=== PATIENT | female | born 1990 | race African-American/Black ===

== ENCOUNTER 2016-09-10 07:45 | Inpatient (IN) | payer OTHER ==
[2016-09-10] MEDS: D5W-LR W/ 20 UNITS OXYTOCIN 1,000 ML IV SCH ×2 (08:15→09:51)
--- NOTE | 2016-09-10 08:29 | HP ---
Past Medical History - Primary Care Physician PCP:: [facility] - Admission Chief Complaint: Painful contractions History of Present Illness: 25 @ 38wk3d with previous c/s requesting TOLAC. Fully dilated on presentation. SROM, clear. +FM, no VB. GBS positive. O+, ab neg. +Utox for Marijuana 04/04/16. HBsAg NR, Rubella Immine, RPR NR, hx chlamydia + 03/29/16, s/ p treatment, PEDRO neg 05/24/16. History Source: Patient Limitations to Obtaining History: No Limitations - Past Medical History CABLE PLACER: No: Alzheimer's, CVA, Dementia, Migraine, Multiple Sclerosis, Peripheral Neuropathy, Parkinson's, Seizure, Syncope, TIA, Vertigo, Other Cardiovascular: No: AFIB, Aneurysm, Aortic Insufficiency, Aortic Stenosis, CAD, CHF, Deep Vein Thrombosis, HTN, Hyperlipdemia, TN, Mitral Insufficiency, Mitral Stenosis, Murmur, Pulmonary Hypertension, Other Pulmonary: No: Asthma, Bronchitis, Cancer, COPD, O2 Dependent, Pneumonia, Previously Intubated, Pulmonary Embolus, Pulmonary Fibrosis, Sleep Apnea, Other Gastrointestinal: No: Ascites, Cancer, Constipation, Crohn's Disease, Diverticulitis, Diverticulosis, Esophageal Varices, Gastritis, GERD, GI Bleed, Hemorrhoids, Hiatal Hernia, Inflamatory Bowel Disease, Irritable Bowel Disease, Pancreatitis, Peptic Ulcer Disease, Ulcerative Colitis, Other Renal/: No: Renal Failure, Renal Inusuff, BPH, Cancer, Hematuria, Hemodialysis , Neurogenic Bladder, Renal Calculi, UTI, Other Reproductive: No: Ectopic , Endometriosis, Fibroids, PID, Polycystic Ovary Syndrome, Postmenopausal, Other ...: 4 ...Para: 1 ...Term: 1 ...: 0 ...Spon : 0 ...Induced : 2 ...Multiple Gestation: 0 ...LMP: 09/18/15 ...EDC by [facility]: 09/21/16 Heme/Onc: No: Anemia, B12 Deficiency, Bleeding Disorder, Cancer, Current Chemotherapy, Current Radiation Therapy, Hemochromatosis, Hypercoaguable State, Myeloproliferative Synd, Sickle Cell Disease, Sickle Cell Trait, Thrombocytopenia, Other Infectious Disease: No: AIDS, C-Diff, Herpes Zoster, HIV, MRSA, STD's, Tuberculosis, VREF, Other Psych: No: Addictions, Anxiety, Bipolar, Depression, Panic, Psychosis, Schizophrenia, Other Musculoskeletal: No: Bursitis, Chronic low back pain, Hemiparesis, Hemiplegia, Osteoarthritis, Paraplegia, Other Rheumatology: No: Fibromyalgia, Gout, Lupus, Rheumatoid Arthritis, Sarcoidosis, Vasculitis, Other ENT: No: Allergic Rhinitis, Sinusitis, Other Endocrine: No: Greenbrier's Disease, [place]'s Disease, Diabetes Insipidus, Diabetes Mellitus, Hyperparathyroidism, Hyperthyroidism, Hypothyroidism, Osteopenia, SIADH, Other Dermatology: No: Basal Cell, Cellulitis, Eczema, Melanoma, Psoriasis, Squamous Cell, Other - Past Surgical History Past Surgical History: Yes: Hx Myomectomy: No Hx Transabdominal Cerclage: No - Smoking History Have you smoked in the past 12 months: No - Alcohol/Substance Use Hx Alcohol Use: No History of Substance Use: reports: None Home Medications - Allergies Allergies/Adverse Reactions: Allergies Allergy/AdvReac Type Severity Reaction Status Date / Time shrimp Allergy Severe Verified 08/26/16 11:50 No Known Drug Allergies Allergy Verified 08/29/16 17:23 Family Disease History - Family Disease History Family History: Unremarkable Review of Systems - Review of Systems Constitutional: reports: No Symptoms Eyes: reports: No Symptoms HENT: reports: No Symptoms Neck: reports: No Symptoms Cardiovascular: reports: No Symptoms Respiratory: reports: No Symptoms Gastrointestinal: reports: Other (Painful contractions) Genitourinary: reports: No Symptoms Breasts: reports: No Symptoms Reported Musculoskeletal: reports: No Symptoms Integumentary: reports: No Symptoms Neurological: reports: No Symptoms Endocrine: reports: No Symptoms Hematology/Lymphatic: reports: No Symptoms Psychiatric: reports: No Symptoms Physical Exam - Maternity Constitutional: Yes: Well Nourished Eyes: Yes: WNL HENT: Yes: WNL, Atraumatic, Normocephalic Neck: Yes: WNL Cardiovascular: Yes: WNL, Regular Rate and Rhythm Lungs: Clear to auscultation Breast(s): Yes: WNL - Abdominal Exam/OB Fundal Height: 35 Number of Fetuses: Single Presentation: Vertex Contractions: Yes Regularity: Regular Intensity: Moderate Monitor Mode: External Heart Rate (range): 150 Category: II Accelerations: None Decelerations: Variable - Vaginal Exam/OB Vaginal Bleediing: No Speculum Exam: No Dilatation (cm): 10 Effacement (%): 100 Amniotic Membrane Status: Ruptured Nitrazine Test: Positive Amniotic Fluid: Yes: Clear Presentation: Vertex/Position Station: +3 - Physical Exam Musculoskeletal: Yes: WNL Extremities: Yes: WNL Edema: No Integumentary: Yes: WNL Deep Tendon Reflex Grade: Normal +2 ...Motor Strength: WNL Psychiatric: Yes: WNL Hemorrhage Risk Assessment - Risk Factors Medium Risk Factors: Yes: Prior , uterine surgery,or multiple laparotomies Risk Score: 1 Risk Level: Medium Risk Problem List - Problems (1) 38 weeks gestation of Code(s): Z3A.38 - 38 WEEKS GESTATION OF Assessment/Plan 25 @ 38wk3d in active labor, requesting TOLAC ,fully dilated, GBS positive, pushing. Cat2 FHT with variable decel's. Head in the 3+ station. EFW 09/06 2363g (<10%). -Admit to L&D -EFM, [facility] -CBC, T&S -GBS ppx -anticipate -consent signed
[2016-09-10] MEDS ORDERED: BENZOCAINE 28 GM HEMORRHOIDAL OINTMENT TP PRN (08:52)
[2016-09-10] MEDS ORDERED: BENZOCAINE 20% 57 GM BOTTLE TP PRN (08:52)
[2016-09-10] MEDS ORDERED: IBUPROFEN 600 MG TABLET (FP) PO PRN (08:52)
[2016-09-10] MEDS ORDERED: ACETAMINOPHEN 325 MG TABLET (FP) PO PRN (08:52)
[2016-09-10] MEDS ORDERED: WITCH HAZEL 50% (TUCKS) 40 PAD/JAR PAD TP PRN (08:52)
[2016-09-10] MEDS ORDERED: BISACODYL 10 MG SUPP.RECT RC PRN (08:52)
[2016-09-10] MEDS ORDERED: METHYLERGONOVINE MALEATE 0.2 MG/1 ML AMP IM PRN (08:52)
[2016-09-10] MEDS ORDERED: ELECTROLYTE-148 SOLN 1,000 ML IV SCH (09:00)
--- NOTE | 2016-09-10 09:00 | PN ---
Delivery - Delivery Vaginal Delivery: No Problems, V-Mar Episiotomy/Laceration: Periurethral Extnsion/lac (2 sarah urethral skid arana, not bleeding, no repair required), 1st degree EBL (cc): 250 Delivery, Single - Stages of Labor Date 1st Stage Initiatied: 09/10/16 Time 1st Stage Initiated: 01:00 Date 2nd Stage Initiated: 09/10/16 Time 2nd Stage Initiated: 08:05 Date of Delivery: 09/10/16 Time of Delivery: 08:13 Date Placenta Delivered: 09/10/16 Time Placenta Delivered: 08:15 Placenta: Yes: Spontaneous - Condition of Gender: Female Position: Right, OA - 1 Minute Total Score: 9 5 Minutes Total Score: 9 Remarks - Remarks Remarks: Female live delivered over intact perineum at 8:13am, no GBS ppx given as patient came in fully dilated and pushing, srom 6am per patient. Body delivered after head, no nuchal cord noted, in the JUAN PABLO position. Cord clampedx2 and cut, infant handed to RN. Cord blood taken. Placenta delivered spontaneously , intact. Small periurethral skid arana noted, not bleeding, not requiring any repair. 's 9/9. Of note, followed for IUGR with serial ultrasounds this .
[2016-09-10 09:07] VITALS: BMI 24.0
[2016-09-10 09:25] LABS: MCH 31.3 pg (25.7-33.7); MCHC 33.2 g/dl (32.0-36.0); MEAN CELL VOLUME 94.4 fl (80-96); MEAN PLT VOLUME 9.7 fl (7.5-11.1); PLATELET COUNT 200 K/MM3 (134-434); RDW 13.6 % (11.6-15.6)
[2016-09-10 09:36] LABS: INR 0.96 (0.82-1.09); PROTHROMBIN TIME (PATIENT) 10.6 SEC (9.98-11.88)
[2016-09-10 09:39] LABS: ACTIVATED PTT 27.3 SECONDS (26.9-34.4)
[2016-09-10 09:55] LABS: CALCIUM 8.9 mg/dL (8.5-10.1); CREATININE 0.6 mg/dL (0.55-1.02)
[2016-09-10 11:14] LABS: ANISOCYTOSIS 1+; HYPOCHROMIA 1+; PLATELET COMMENT2 NO CLOTTING DETECTED
[2016-09-10 11:19] LABS: PLATELET ESTIMATE ADEQUATE (NORMAL)
[2016-09-10 12:26] LABS: URINE MARIJUANA THC NEGATIVE ng/ml (CUTOFF=50)
[2016-09-11 08:40] LABS: BASOPHIL 0.2 % (0-2.0); EOSINOPHIL 0.3 % (0-4.5); MCH 31.2 pg (25.7-33.7); MCHC 32.8 g/dl (32.0-36.0); MEAN CELL VOLUME 95.4 fl (80-96); NEUTROPHILS 83.1 % (42.8-82.8); PLATELET COUNT 209 K/MM3 (134-434); RDW 13.8 % (11.6-15.6); WHITE BLOOD COUNT 18.4 K/mm3 (4.0-10.0)
[2016-09-11] MEDS ORDERED: INFLUENZA VACCINE 45 MCG/0.5 ML (MDV 16-17) IM ONE (10:00)
[2016-09-11] MEDS ORDERED: VACCINE 60 MCG/0.5 ML (P/F DISP.SYRIN 16-17) IM ONE (10:00)
--- NOTE | 2016-09-11 10:22 | PN ---
Post Progress Note - Subjective Subjective: Doing well . No complaints. , Ambulating, tolerating PO. Post Day: 1 Type of Delivery: Vital Signs: Vital Signs Temperature 98.0 F 09/11/16 06:00 Pulse Rate 77 09/11/16 06:00 Respiratory Rate 20 09/11/16 06:00 Blood Pressure 125/73 09/11/16 06:00 O2 Sat by Pulse Oximetry (%) 100 09/10/16 09:15 Breast Exam: Yes: Soft Uterus: Yes: Fundus Firm, Fundus below umbilicus Abdomen/GI: Yes: Abdomen soft, Passing flatus Lochia: Yes: Rubra Lochia, amount: Small Extremities: Yes: Calves non-tender Activity: Ambulating - Labs Labs: CBC WBC 18.4 K/mm3 (4.0-10.0) H 09/11/16 08:10 RBC 3.21 M/mm3 (3.60-5.2) L 09/11/16 08:10 Hgb 10.0 GM/dL (10.7-15.3) L 09/11/16 08:10 Hct 30.6 % (32.4-45.2) L 09/11/16 08:10 MCV 95.4 fl (80-96) 09/11/16 08:10 MCHC 32.8 g/dl (32.0-36.0) 09/11/16 08:10 RDW 13.8 % (11.6-15.6) 09/11/16 08:10 Plt Count 209 K/MM3 (134-434) 09/11/16 08:10 MPV 10.0 fl (7.5-11.1) 09/11/16 08:10 Neutrophils % 83.1 % (42.8-82.8) H 09/11/16 08:10 Lymphocytes % 9.3 % (8-40) D 09/11/16 08:10 Monocytes % 7.1 % (3.8-10.2) 09/11/16 08:10 Eosinophils % 0.3 % (0-4.5) D 09/11/16 08:10 Basophils % 0.2 % (0-2.0) 09/11/16 08:10 Band Neutrophils 4.0 % (0-10) 09/10/16 09:05 Differential Comment Slide scanned 09/10/16 09:05 Platelet Estimate Adequate (NORMAL) 09/10/16 09:05 Platelet Comment No clumping noted 09/10/16 09:05 Platelet Comment No clotting detected 09/10/16 09:05 Hypochromic-Microcytic 1+ 09/10/16 09:05 Anisocytosis 1+ 09/10/16 09:05 Problem List - Problems (1) 38 weeks gestation of Code(s): Z3A.38 - 38 WEEKS GESTATION OF (2) Spontaneous vaginal delivery Code(s): O80 - ENCOUNTER FOR FULL-TERM UNCOMPLICATED DELIVERY Assessment/Plan 25 P2 PPD#1 s/p , doing well . VSS. AF. Hct stable -Routine care -Regular diet -Motrin prn -Ambulate -d/c home PPD#2
[2016-09-11] MEDS ORDERED: SENNOSIDES/DOCUSATE COMBO (SENNA PLUS) TABLET (UD) PO PRN (22:00)
[2016-09-12 08:45] VITALS: BP 121/69; PULSE 70; TEMP 97.6
--- NOTE | 2016-09-12 09:29 | DS ---
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 Vital Signs: Vital Signs Temperature 97.6 F 09/12/16 08:44 Pulse Rate 70 09/12/16 08:44 Respiratory Rate 18 09/12/16 08:44 Blood Pressure 121/69 09/12/16 08:44 O2 Sat by Pulse Oximetry (%) 100 09/10/16 09:15 Constitutional: Yes: Well Nourished Eyes: Yes: WNL HENT: Yes: WNL, Atraumatic, Normocephalic Neck: Yes: WNL Respiratory: Yes: WNL, Regular Gastrointestinal: Yes: WNL, Normal Bowel Sounds ...Rectal Exam: Yes: WNL Renal/: Yes: WNL Pelvis: Yes: WNL External Genitalia: Yes: Normal Vaginal Exam: Yes: Normal Cervix: Yes: Normal ....Post : Yes: Uterus firm, Uterus non-tender Musculoskeletal: Yes: WNL Extremities: Yes: WNL Edema: No Neurological: Yes: WNL ...Motor Strength: WNL Psychiatric: Yes: WNL Labs: CBC, BMP 09/11/16 08:10 09/10/16 09:05 Delivery - Delivery Vaginal Delivery: No Problems, V-Mar Type of Anesthesia: None Episiotomy/Laceration: 1st degree EBL (cc): 300 Delivery, Single - Stages of Labor Date 1st Stage Initiatied: 09/10/16 Time 1st Stage Initiated: 01:00 Date 2nd Stage Initiated: 09/10/16 Time 2nd Stage Initiated: 08:05 Date of Delivery: 09/10/16 Time of Delivery: 08:13 Time Placenta Delivered: 08:15 Placenta: Yes: Spontaneous - Condition of Infant Sports Marketer/Women'S Garment Fitter Present: No Infant Gender: Female Weight: 5 lb 2 oz Position: Right, OA Total Hours ROM (Hrs/Mins): 2hrs 15min - 1 Minute Total Score: 9 5 Minutes Total Score: 9 - Feeding Plan Initial Plan: Exclusive throughout hospitalization Remarks - Remarks Remarks: Female live infant delivered over intact perineum at 8:13am, no GBS ppx given as patient came in fully dilated and pushing, srom 6am per patient. Body delivered after head, no nuchal cord noted, in the JUAN PABLO position. Cord clampedx2 and cut, handed to RN. Cord blood taken. Placenta delivered spontaneously , intact. Small periurethral skid arana noted, not bleeding, not requiring any repair. 's 9/9. Of note, followed for IUGR with serial ultrasounds this . Discharged PPD#2, course uneventful. Denies SOB/CP/Dizziness on discharge. Ambulating, tolerating regular diet, pain well controlled, voiding. Will f/u at [facility] for visit in 6 weeks. Discharge Summary Reason For Visit: LABOR Current Active Problems 38 weeks gestation of (Acute) Spontaneous vaginal delivery (Acute) Condition: Good - Instructions Diet, Activity, Other Instructions: Post Instructions DIET: Continue good diet high in protein, calcium, and iron rich foods. Drink at least eight (8) glasses of water daily in addition to other fluids. ___ Regular diet MEDICATIONS: Continue vitamins and iron as previously directed. Motrin and Tylenol may be taken for minor discomfort. ACTIVITY: Mild to moderate exercise may be started in two (2) weeks. Take frequent rest periods. Resume normal activity after six (6) week check up. WOUND CARE OF OPERATIVE SITE: Continue use of perineal bottle until vaginal discharge stops. Keep area clean. Shower daily. Keep abdominal wound dry. Report any drainage or redness to physician. Tub baths, tampons and douches are not permitted for 6 weeks. ____ Breast feeding ___ Bottle feeding BREAST CARE: (For those that are not ): If engorgement occurs: Wear tight fitting bra. Take Tylenol or Motrin for pain. Apply cold packs (ice in bags to each breast ) FAMILY PLANNING: There are many control alternatives to pursue and they should be discussed at your first office visit. You may resume sexual activity after your six (6) week check up. (Remember, is not a contraceptive) NEXT PHYSICIAN APPOINTMENT: Call for a six (6) week appointment Call Clinic or got to Emergency Dept if you have any of the following: Heavy vaginal bleeding Painful urination Leg pain Unusual odor noted to vaginal bleeding High fever Red streaking noted on breast Referrals: Eliana Wright MD [Staff Physician] - Disposition: HOME - Home Medications Comprehensive Discharge Medication List: Ambulatory Orders Docusate Sodium [Colace -] 100 mg PO DAILY #30 capsule 09/11/16 Ferrous Sulfate [Feosol] 325 mg PO DAILY #30 tablet 09/11/16 Ibuprofen [Motrin -] 600 mg PO QID #28 tablet 09/11/16
== END 2016-09-12 11:55 | disposition home or self-care (01) | DRG 560 ==
LOC: JLDR 07:45 → J3W 09:55
PROVIDERS: ADMIT Obstetrics & Gynecology; ATTEND Obstetrics & Gynecology
PROC: 10E0XZZ Delivery of Products of Conception, External Approach (ICD-10-PCS; principal; 2016-09-10)
DX: O70.0 First degree perineal laceration during delivery (principal); O34.211 Maternal care for low transverse scar from previous cesarean delivery; O99.824 Streptococcus B carrier state complicating childbirth; Z3A.38 38 weeks gestation of pregnancy; Z37.0 Single live birth
CPT/HCPCS: 36415; 59409; 80048; 85025; 85610; 85730; 86593; 86850; 86900; 86901; G0479

== ENCOUNTER 2023-11-28 08:21 | Emergency (ER) | payer OTHER ==
[2023-11-28 08:37] VITALS: BP 125/88; PULSE 101; RESP 20; TEMP 99; BMI 20.9
[2023-11-28] MEDS ORDERED: DEXAMETHASONE SOD PHOSPHATE 10 MG/1 ML VIAL ONE (09:42)
[2023-11-28] MEDS: DEXAMETHASONE SOD PHOSPHATE 10 MG/1 ML VIAL IM ONE (09:45)
[2023-11-28] MEDS: PENICILLIN G BENZATHINE 1,200,000 UNIT/2 ML PFS IM ONE (09:53)
== END 2023-11-28 09:54 | disposition home or self-care (01) ==
LOC: JER 08:21 → JERFT 08:21
PROC: 3E023GC Introduction of Other Therapeutic Substance into Muscle, Percutaneous Approach (ICD-10-PCS; principal; 2023-11-28)
PROC: 3E02329 Introduction of Other Anti-infective into Muscle, Percutaneous Approach (ICD-10-PCS; 2023-11-28)
DX: H92.02 Otalgia, left ear (principal); R59.0 Localized enlarged lymph nodes; J02.0 Streptococcal pharyngitis; Z20.822 Contact with and (suspected) exposure to COVID-19
CPT/HCPCS: 0241U-QW; 87651; 99284-25; J1100